=== PATIENT | female | born 1950 | race Caucasian/White ===

== ENCOUNTER 2022-01-04 19:11 | Emergency (ER) | payer MEDICARE, OTHER ==
[2022-01-04] MEDS ORDERED: HYDROcodone/Acetaminophen 5/325 mg Tablet ONE (23:24)
== END 2022-01-05 00:05 | disposition home or self-care (01) ==
LOC: ERS 19:11
DX: S82.045A Nondisplaced comminuted fracture of left patella, initial encounter for closed fracture (principal); I10 Essential (primary) hypertension; E78.5 Hyperlipidemia, unspecified; W18.30XA Fall on same level, unspecified, initial encounter

== ENCOUNTER 2022-06-03 10:51 | Outpatient (CLI) | payer MEDICARE | END 2022-06-03 10:52 | disposition home or self-care (01) | LOC: LABBT 10:51 | PROVIDERS: ATTEND Orthopaedic Surgery | DX: Z01.818 Encounter for other preprocedural examination (principal); M17.0 Bilateral primary osteoarthritis of knee | CPT/HCPCS: 71046; 80048; 81003; 85025; 85610; 86850; 86900; 86901; 87081 ==

== ENCOUNTER 2022-07-07 10:55 | Day surgery (SDC) | payer MEDICARE, OTHER ==
[2022-07-06 10:01] VITALS: BMI 30.9
[2022-07-07] MEDS ORDERED: PROPOFOL 20 ML ONE (11:25)
[2022-07-07] MEDS ORDERED: Ketamine 50 MG/ML (10ML VIAL) ONE (12:48)
[2022-07-07] MEDS ORDERED: PROPOFOL 200 MG/20 ML VIAL ONE (13:00)
[2022-07-07] MEDS ORDERED: Lidocaine 1% PF 5 ML VIAL ONE (13:00)
== END 2022-07-07 14:50 | disposition home or self-care (01) ==
LOC: SDC 10:55
PROVIDERS: ATTEND Internal Medicine Cardiovascular Disease
PROC: B24BZZ4 Ultrasonography of Heart with Aorta, Transesophageal (ICD-10-PCS; principal; 2022-07-07)
DX: I35.0 Nonrheumatic aortic (valve) stenosis (principal); I25.10 Atherosclerotic heart disease of native coronary artery without angina pectoris; I10 Essential (primary) hypertension; E78.5 Hyperlipidemia, unspecified; E11.9 Type 2 diabetes mellitus without complications; Z86.16 Personal history of COVID-19; Z79.890 Hormone replacement therapy; Z79.4 Long term (current) use of insulin; Z79.899 Other long term (current) drug therapy; Z96.41 Presence of insulin pump (external) (internal)
CPT/HCPCS: 93312; J2704

== ENCOUNTER 2022-12-27 12:54 | Outpatient (CLI) | payer MEDICARE, OTHER ==
[2022-12-27 14:37] LABS: #Basophils 0.1 10x3/uL (0.0-0.2); #Eosinphils 0.2 10x3/uL (0.0-0.5); #Monocytes 0.5 10x3/uL (0.0-1.1); #Neutrophils 5.1 10x3/uL (1.5-8.4); %Basophils 1.4 % (0.0-2.0); %Eosinophils 2.4 % (0.0-6.0); %Monocytes 6.9 % (0.0-10.0); Hematocrit 34.1 % (34.9-44.5); Mean Corpuscular HGB CONC 32.3 g/dL (32.0-36.0); Mean Corpuscular Hemoglobin 30.6 pg (27.0-33.0); Mean Platelet Volume 9.8 fl (7.4-10.4); Platelet Count 192 10x3/uL (150-450); RBC Distribution Width 13.2 % (11.5-14.5); Red Blood Cell (RBC) Count 3.59 10x6/uL (3.90-5.03); White Blood Cell (WBC) Count 6.6 10x3/uL (3.5-10.5)
[2022-12-27 15:00] LABS: Prothrombin Time 10.5 sec (9.5-12.1)
[2022-12-27 15:07] LABS: Anion Gap 9 mmol/L (10-20); BUN (Urea Nitrogen) 21 mg/dL (9.8-20.1); Calc. Creatinine Clearance 0 mL/min (70-130); Calcium 8.3 mg/dL (7.8-10.44); Carbon Dioxide 27 mmol/L (23-31); Chloride 100 mmol/L (98-107); Estimated GFR 74; Glucose 315 mg/dL (83-110); Potassium 4.3 mmol/L (3.5-5.1); Sodium 132 mmol/L (136-145)
[2022-12-27 15:32] LABS: Bilirubin Neg (Negative); Blood, Urine 25 (Negative); Clarity Cloudy (Clear); Glucose, Urine (Dipstick) >=1000 mg/dL (Negative); Ketone, Urine Negative (Negative); Leukocyte 500 (Negative); Nitrite Negative (Negative); Protein, Urine (Dipstick) Negative (Neg-Trace)
== END 2022-12-27 12:55 | disposition home or self-care (01) ==
LOC: LABBT 12:54
PROVIDERS: ATTEND Orthopaedic Surgery
DX: Z01.818 Encounter for other preprocedural examination (principal); M17.0 Bilateral primary osteoarthritis of knee
CPT/HCPCS: 71046; 80048; 81003; 85025; 85610; 86850; 86900; 86901; 87081; 93005; 93010

== ENCOUNTER 2022-12-29 06:53 | Inpatient (IN) | payer MEDICARE, OTHER ==
[2022-12-27 13:53] VITALS: BMI 30.9
[2022-12-29] MEDS ORDERED: Vancomycin 1 GM/200 ML (FROZEN) BAG ONE (07:33)
[2022-12-29] MEDS ORDERED: Tranexamic Acid 1,000 MG/10 ML VIAL ONE ×2 (07:33→11:39)
[2022-12-29] MEDS ORDERED: Sodium Chloride 0.9% 100 ML ONE ×2 (07:33→09:33)
[2022-12-29] MEDS ORDERED: Bupivacaine PF 0.5% 30 ML VIAL ONE ×2 (08:23→09:20)
[2022-12-29] MEDS ORDERED: fentaNYL 50 mcg/mL 1 mL Vial ONE ×3 (08:23→16:24)
[2022-12-29] MEDS ORDERED: Midazolam HCl 2 mg/2 ml Vial ONE (08:23)
[2022-12-29] MEDS ORDERED: Ropivacaine 0.2% 550 ML 550 ML NERVE BLCK SCH (09:15)
[2022-12-29] MEDS ORDERED: traMADol HCl 50 MG TAB PO PRN ×2 (09:15)
[2022-12-29] MEDS ORDERED: Zolpidem Tartrate 5 MG TAB PO PRN ×2 (09:15→10:07)
[2022-12-29] MEDS ORDERED: Promethazine HCl 25 MG/ML VIAL IM PRN ×3 (09:15→11:41)
[2022-12-29] MEDS ORDERED: HYDROcodone/Acetaminophen 10/325 mg Tablet PO PRN (09:15)
[2022-12-29] MEDS ORDERED: Ondansetron PF 4 MG/2 ML Vial IVP PRN ×2 (09:15→10:07)
[2022-12-29] MEDS ORDERED: fentaNYL 50 mcg/mL 1 mL Vial SLOW IVP PRN (09:19)
[2022-12-29] MEDS ORDERED: methylPREDNISolone Acetate 40 mg/ml Vial ONE (09:20)
[2022-12-29] MEDS ORDERED: Lidocaine 1% (PF) 30 ML VIAL ONE (09:20)
[2022-12-29] MEDS ORDERED: fentaNYL PF 100 MCG/2 ML SYRINGE ONE (09:25)
[2022-12-29] MEDS ORDERED: CEFAZOLIN 2 GM VIAL ONE (09:33)
[2022-12-29] MEDS ORDERED: Bupivacaine HCl 0.5%/Epinephrine 1:200,000/PF 30 ml Vial ONE (09:46)
[2022-12-29] MEDS ORDERED: Lidocaine 1% PF 5 ML VIAL ONE (09:46)
[2022-12-29] MEDS ORDERED: Metoprolol Tartrate 5 MG/5 ML VIAL ONE (09:46)
[2022-12-29] MEDS ORDERED: Ondansetron PF 4 MG/2 ML Vial ONE ×3 (09:46→16:33)
[2022-12-29] MEDS ORDERED: PROPOFOL 200 MG/20 ML VIAL ONE (09:46)
[2022-12-29] MEDS ORDERED: Acetaminophen 325 MG TAB PO PRN (10:07)
[2022-12-29] MEDS ORDERED: diphenhydrAMINE 25 MG CAP PO PRN (10:07)
[2022-12-29] MEDS ORDERED: Vancomycin HCl 1.5 GM in Sodium Chloride 0.9% 250 ML 300 ML IVPB SCH (10:15)
[2022-12-29] MEDS ORDERED: Tranexamic Acid 1,000 MG in Sodium Chloride 0.9% 100 ML IVPB SCH (10:15)
[2022-12-29] MEDS ORDERED: HYDROmorphone 2 MG/ML VIAL SLOW IVP PRN (11:41)
[2022-12-29] MEDS ORDERED: PACU-Morphine 4MG/ML VIAL SLOW IVP PRN (11:41)
[2022-12-29] MEDS ORDERED: Ondansetron HCl/PF 4 MG/2 ML Vial IVP PRN (11:41)
[2022-12-29] MEDS ORDERED: Fentanyl 250 MCG/5 ML VIAL ONE (11:54)
[2022-12-29] MEDS: Ketorolac Tromethamine 30 MG/ML VIAL IVP SCH ×3 (16:33→23:21)
[2022-12-29] MEDS: Sodium Chloride 0.9% 1,000 ML IV SCH ×2 (16:33→23:23)
[2022-12-29] MEDS: CEFAZOLIN 2 GM in Sodium Chloride 0.9% 100 ML IVPB SCH (17:14)
[2022-12-29] MEDS ORDERED: Dextrose 5% in Water 1,000 ML IV PRN (18:26)
[2022-12-29] MEDS ORDERED: Glucagon 1 MG/ML KIT IM PRN (18:26)
[2022-12-29] MEDS ORDERED: HumaLOG 300 UNITS/3 ML VIAL SC PRN ×2 (18:26)
[2022-12-29] MEDS ORDERED: Dextrose 50% Abboject 50 ML SYRINGE SLOW IVP PRN (18:26)
[2022-12-29] MEDS: Ezetimibe 10 MG TAB PO SCH (20:03)
[2022-12-29] MEDS: Rosuvastatin 20 MG TAB PO SCH (20:03)
[2022-12-29] MEDS: Melatonin 3 MG TAB PO SCH (20:03)
[2022-12-29] MEDS: Aspirin 81 mg Enteric Coated Tablet PO SCH (20:03)
[2022-12-29] MEDS ORDERED: Vancomycin 1.5 GRAM/300 ML BAG 1.5 GM in Premix Bag 1 BAG IVPB SCH (21:00)
[2022-12-30] MEDS: CEFAZOLIN 2 GM in Sodium Chloride 0.9% 100 ML IVPB SCH (02:03)
[2022-12-30] MEDS: Levothyroxine Sodium 112 MCG TAB PO SCH (05:30)
[2022-12-30] MEDS: Ketorolac Tromethamine 30 MG/ML VIAL IVP SCH ×3 (05:30→18:14)
[2022-12-30 05:42] LABS: Hematocrit 28.3 % (36.0-47.0); Hemoglobin 9.1 g/dL (12.0-16.0); Mean Corpuscular HGB CONC 32.2 g/dL (32.0-36.0); Mean Corpuscular Hemoglobin 31.3 pg (27.0-31.0); Mean Corpuscular Volume 97.3 fl (78.0-98.0); Mean Platelet Volume 10.1 fL (7.4-10.4); Platelet Count 153 10x3/uL (130-400); RBC Distribution Width 13.5 % (11.5-14.5); Red Blood Cell (RBC) Count 2.91 mill/uL (4.20-5.40); White Blood Cell (WBC) Count 7.4 10x3/uL (4.8-10.8)
[2022-12-30] MEDS: Sodium Chloride 0.9% 1,000 ML IV SCH ×2 (07:51→16:26)
[2022-12-30] MEDS: Aspirin 81 mg Enteric Coated Tablet PO SCH ×2 (08:43→20:27)
[2022-12-30] MEDS: Multivitamin W/ Minerals 1 TAB PO SCH (08:43)
[2022-12-30] MEDS: Senokot S 8.6-50 MG TAB PO SCH ×2 (08:43→20:27)
[2022-12-30] MEDS: Ferrous Gluconate 324 MG TAB PO SCH ×2 (08:43→20:27)
[2022-12-30] MEDS: Losartan 25 MG TAB PO SCH (08:44)
[2022-12-30] MEDS: BuPROPion XL 150 MG ER.TAB PO SCH (08:44)
[2022-12-30] MEDS: HYDROcodone/Acetaminophen 10/325 mg Tablet PO PRN ×2 (08:49→16:28)
[2022-12-30] MEDS: Ezetimibe 10 MG TAB PO SCH (20:27)
[2022-12-30] MEDS: Melatonin 3 MG TAB PO SCH (20:27)
[2022-12-30] MEDS: Rosuvastatin 20 MG TAB PO SCH (20:27)
[2022-12-31] MEDS: Ketorolac Tromethamine 30 MG/ML VIAL IVP SCH ×2 (00:03→06:12)
[2022-12-31] MEDS: HYDROcodone/Acetaminophen 10/325 mg Tablet PO PRN ×2 (02:30→09:22)
[2022-12-31] MEDS: Sodium Chloride 0.9% 1,000 ML IV SCH (03:22)
[2022-12-31 05:42] LABS: #Basophils 0.1 thou/uL (0.0-0.2); #Eosinphils 0.1 thou/uL (0.0-0.7); #Monocytes 0.7 thou/uL (0.11-0.59); #Neutrophils 6.2 thou/uL (1.40-6.50); %Basophils 0.7 % (0.0-1.0); %Eosinophils 1.6 % (0.0-10.0); %Lymphocytes 6.3 % (21.0-51.0); %Monocytes 8.9 % (0.0-10.0); Hematocrit 28.1 % (36.0-47.0); Hemoglobin 9.2 g/dL (12.0-16.0); Mean Corpuscular HGB CONC 32.7 g/dL (32.0-36.0); Mean Corpuscular Hemoglobin 31.4 pg (27.0-31.0); Mean Corpuscular Volume 95.9 fl (78.0-98.0); Mean Platelet Volume 10.1 fL (7.4-10.4); Platelet Count 148 10x3/uL (130-400); RBC Distribution Width 13.4 % (11.5-14.5); Red Blood Cell (RBC) Count 2.93 mill/uL (4.20-5.40); White Blood Cell (WBC) Count 7.5 10x3/uL (4.8-10.8)
[2022-12-31 06:06] LABS: Anion Gap 16 mmol/L (10-20); BUN (Urea Nitrogen) 21 mg/dL (9.8-20.1); Calc. Creatinine Clearance 72 mL/min (70-130); Calcium 8.4 mg/dL (7.8-10.44); Carbon Dioxide 20 mmol/L (23-31); Chloride 99 mmol/L (98-107); Estimated GFR 70; Glucose 330 mg/dL (83-110); Potassium 5.1 mmol/L (3.5-5.1); Sodium 130 mmol/L (136-145)
[2022-12-31] MEDS: Levothyroxine Sodium 112 MCG TAB PO SCH (06:13)
[2022-12-31 08:22] VITALS: BP 122/70; TEMP 98.4
[2022-12-31] MEDS: Aspirin 81 mg Enteric Coated Tablet PO SCH (09:22)
[2022-12-31] MEDS: BuPROPion XL 150 MG ER.TAB PO SCH (09:22)
[2022-12-31] MEDS: Senokot S 8.6-50 MG TAB PO SCH (09:22)
[2022-12-31] MEDS: Losartan 25 MG TAB PO SCH (09:23)
[2022-12-31] MEDS: Multivitamin W/ Minerals 1 TAB PO SCH (09:23)
[2022-12-31] MEDS: Ferrous Gluconate 324 MG TAB PO SCH (09:23)
== END 2022-12-31 13:09 | disposition home or self-care (01) | DRG 470 ==
LOC: SDC 06:53 → SURG B 10:07
PROVIDERS: ADMIT Orthopaedic Surgery; ATTEND Orthopaedic Surgery
PROC: 0SRD0J9 Replacement of Left Knee Joint with Synthetic Substitute, Cemented, Open Approach (ICD-10-PCS; principal; 2022-12-29)
PROC: 3E0U33Z Introduction of Anti-inflammatory into Joints, Percutaneous Approach (ICD-10-PCS; 2022-12-29)
PROC: 3E0U3BZ Introduction of Anesthetic Agent into Joints, Percutaneous Approach (ICD-10-PCS; 2022-12-29)
DX: M17.0 Bilateral primary osteoarthritis of knee (principal); E87.1 Hypo-osmolality and hyponatremia; D62 Acute posthemorrhagic anemia; I10 Essential (primary) hypertension; E03.9 Hypothyroidism, unspecified; E11.9 Type 2 diabetes mellitus without complications; Z98.890 Other specified postprocedural states
CPT/HCPCS: 36415; 36416; 80048; 83036; 85027; 86850; 86900; 86901; A4306; C1776; J1030; J1885; J2001; J2250; J2405; J2704; J2795; J3010; J3370; J3370-JW; J3490; S0020

== ENCOUNTER 2023-12-30 08:50 | Outpatient (CLI) | payer MEDICARE ==
[2023-12-30 10:37] LABS: #Basophils 0.12 10x3/uL (0.0-0.2); %Basophils 2.3 % (0.0-1.0); %Eosinophils 4.7 % (0.0-10.0); %Lymphocytes 19.3 % (21.0-51.0); %Monocytes 11.2 % (0.0-10.0); %Neutrophils 62.1 % (42.0-75.0); Hematocrit 35.1 % (36.0-47.0); Hemoglobin 11.5 g/dL (12.0-16.0); Mean Corpuscular HGB CONC 32.8 g/dL (32.0-36.0); Mean Corpuscular Hemoglobin 30.6 pg (27.0-31.0); Mean Corpuscular Volume 93.4 fL (78.0-98.0); Mean Platelet Volume 9.7 fL (7.4-10.4); Platelet Count 210 10x3/uL (130-400); RBC Distribution Width 13.3 % (11.5-14.5); Red Blood Cell (RBC) Count 3.76 mill/uL (4.20-5.40)
[2023-12-30 10:44] LABS: Bilirubin Negative (Negative); Blood, Urine Negative (Negative); Clarity Clear (Clear); Glucose, Urine (Dipstick) Normal (Negative); Ketone, Urine Trace mg/dL (Negative); Leukocyte 500 Leu/uL (Negative); Nitrite Negative (Negative); Protein, Urine (Dipstick) Negative (Neg-Trace); Specific Gravity, Urine 1.013 (1.002-1.036); Urobilinogen Normal mg/dL (Less than 2); pH, Urine 5.5 (5.0-9.0)
[2023-12-30 10:53] LABS: Anion Gap 11 mmol/L (10-20); BUN (Urea Nitrogen) 18 mg/dL (9.8-20.1); Calc. Creatinine Clearance 0 mL/min (70-130); Calcium 8.6 mg/dL (7.8-10.44); Carbon Dioxide 25 mmol/L (23-31); Chloride 101 mmol/L (98-107); Estimated GFR 71; Glucose 218 mg/dL (83-110); Potassium 4.4 mmol/L (3.5-5.1); Sodium 133 mmol/L (136-145)
== END 2023-12-30 08:51 | disposition home or self-care (01) ==
LOC: LABBT 08:50
PROVIDERS: ATTEND Orthopaedic Surgery
DX: Z01.818 Encounter for other preprocedural examination (principal); M17.11 Unilateral primary osteoarthritis, right knee
CPT/HCPCS: 71046; 80048; 81003; 85025; 85610; 87081; 93005; 93010

== ENCOUNTER 2024-01-04 06:05 | Inpatient (IN) | payer MEDICARE ==
[2023-12-30 09:21] VITALS: BMI 29.9
[2024-01-04] MEDS ORDERED: Tranexamic Acid 1,000 MG/10 ML VIAL ONE ×2 (06:11→09:31)
[2024-01-04] MEDS ORDERED: CEFAZOLIN 2 GM VIAL ONE (06:12)
[2024-01-04] MEDS ORDERED: Sodium Chloride 0.9% 100 ML ONE (06:12)
[2024-01-04] MEDS ORDERED: Vancomycin 1 GM/200 ML (FROZEN) BAG ONE (06:12)
[2024-01-04] MEDS ORDERED: Bupivacaine PF 0.5% 30 ML VIAL ONE ×2 (06:26→06:28)
[2024-01-04] MEDS ORDERED: Midazolam HCl 2 mg/2 ml Vial ONE (06:47)
[2024-01-04] MEDS ORDERED: Fentanyl 250 MCG/5 ML VIAL ONE (06:48)
[2024-01-04] MEDS ORDERED: Bupivacaine HCl 0.5%/Epinephrine 1:200,000/PF 30 ml Vial ONE (07:15)
[2024-01-04] MEDS ORDERED: fentaNYL 50 mcg/mL 1 mL Vial SLOW IVP PRN (07:16)
[2024-01-04] MEDS ORDERED: Ropivacaine 0.2% 550 ML 550 ML NERVE BLCK SCH (07:30)
[2024-01-04] MEDS ORDERED: Zolpidem Tartrate 5 MG TAB PO PRN ×2 (07:30→09:47)
[2024-01-04] MEDS ORDERED: Ondansetron PF 4 MG/2 ML Vial IVP PRN ×2 (07:30→09:47)
[2024-01-04] MEDS ORDERED: HYDROcodone/Acetaminophen 10/325 mg Tablet PO PRN (07:30)
[2024-01-04] MEDS ORDERED: Promethazine HCl 25 MG/ML VIAL IM PRN ×3 (07:30→10:15)
[2024-01-04] MEDS ORDERED: PROPOFOL 20 ML ONE (07:33)
[2024-01-04] MEDS ORDERED: PHENYLEPHRINE-NS 100 MCG/ML 10 ML SYRINGE ONE ×2 (08:04→08:19)
[2024-01-04] MEDS ORDERED: Esmolol 100 MG/10 ML VIAL ONE (08:16)
[2024-01-04] MEDS ORDERED: Ondansetron PF 4 MG/2 ML Vial ONE (09:14)
[2024-01-04] MEDS ORDERED: diphenhydrAMINE 25 MG CAP PO PRN (09:47)
[2024-01-04] MEDS ORDERED: Acetaminophen 325 MG TAB PO PRN (09:47)
[2024-01-04] MEDS ORDERED: HYDROmorphone 0.5 MG/0.5 ML SYRINGE ONE (09:51)
[2024-01-04] MEDS ORDERED: fentaNYL PF 100 MCG/2 ML SYRINGE ONE (09:51)
[2024-01-04] MEDS ORDERED: Tranexamic Acid 1,000 MG in Sodium Chloride 0.9% 100 ML IVPB SCH (10:00)
[2024-01-04] MEDS ORDERED: HYDROmorphone 2 MG/ML VIAL SLOW IVP PRN (10:15)
[2024-01-04] MEDS ORDERED: Ondansetron HCl/PF 4 MG/2 ML Vial IVP PRN (10:15)
[2024-01-04] MEDS ORDERED: Pantoprazole DR 40 MG TAB PO PRN (10:16)
[2024-01-04] MEDS: Sodium Chloride 0.9% 1,000 ML IV SCH (11:51)
[2024-01-04] MEDS ORDERED: Dexamethasone 20 MG/5 ML VIAL ONE (12:11)
[2024-01-04] MEDS ORDERED: Lidocaine 1% PF 5 ML VIAL ONE (12:11)
[2024-01-04] MEDS ORDERED: Dextrose 50% Abboject 50 ML SYRINGE SLOW IVP PRN (13:37)
[2024-01-04] MEDS ORDERED: Glucagon 1 MG/ML KIT IM PRN (13:37)
[2024-01-04] MEDS ORDERED: Dextrose 5% in Water 1,000 ML IV PRN (13:37)
[2024-01-04] MEDS: Ketorolac Tromethamine 30 MG (1 mL) VIAL IVP SCH (15:14)
[2024-01-04] MEDS: CEFAZOLIN 2 GM in Sodium Chloride 0.9% 100 ML IVPB SCH (15:17)
[2024-01-04] MEDS: Insulin Lispro 100 UNIT/ML 10 ML VIAL SC PRN (15:19)
[2024-01-04] MEDS: Vancomycin (BATCH) 1.5 GM in Premix 1 BAG IVPB SCH (17:47)
[2024-01-04] MEDS: Ezetimibe 10 MG TAB PO SCH (21:12)
[2024-01-04] MEDS: Rosuvastatin 20 MG TAB PO SCH (21:12)
[2024-01-04] MEDS: Senokot S 8.6-50 MG TAB PO SCH (21:13)
[2024-01-04] MEDS: Melatonin 3 MG TAB PO SCH (21:14)
[2024-01-04] MEDS: Nitrofurantoin Monohyd/M-Cryst 100 MG CAP PO SCH (21:14)
[2024-01-04] MEDS: Aspirin 81 mg Enteric Coated Tablet PO SCH (21:15)
[2024-01-04] MEDS: Ferrous Gluconate 324 MG TAB PO SCH (21:15)
[2024-01-05 05:05] LABS: #Basophils 0.05 10x3/uL (0.0-0.2); #Eosinphils Less than 0.03 10x3/uL (0.0-0.7); %Basophils 0.6 % (0.0-1.0); %Eosinophils 0.1 % (0.0-10.0); %Lymphocytes 11.1 % (21.0-51.0); %Monocytes 10.9 % (0.0-10.0); %Neutrophils 76.9 % (42.0-75.0); Hematocrit 27.7 % (36.0-47.0); Hemoglobin 9.1 g/dL (12.0-16.0); Mean Corpuscular HGB CONC 32.9 g/dL (32.0-36.0); Mean Corpuscular Hemoglobin 30.8 pg (27.0-31.0); Mean Corpuscular Volume 93.9 fL (78.0-98.0); Mean Platelet Volume 9.9 fL (7.4-10.4); Platelet Count 178 10x3/uL (130-400); RBC Distribution Width 13.4 % (11.5-14.5); Red Blood Cell (RBC) Count 2.95 mill/uL (4.20-5.40)
[2024-01-05 05:30] LABS: Anion Gap 12 mmol/L (10-20); BUN (Urea Nitrogen) 26 mg/dL (9.8-20.1); Calc. Creatinine Clearance 79 mL/min (70-130); Calcium 8.2 mg/dL (7.8-10.44); Carbon Dioxide 22 mmol/L (23-31); Chloride 104 mmol/L (98-107); Estimated GFR 80; Glucose 188 mg/dL (83-110); Potassium 4.7 mmol/L (3.5-5.1); Sodium 133 mmol/L (136-145)
[2024-01-05] MEDS: Levothyroxine Sodium 112 MCG TAB PO SCH (05:44)
[2024-01-05] MEDS: BuPROPion XL 150 MG ER.TAB PO SCH (09:57)
[2024-01-05] MEDS: Multivitamin W/ Minerals 1 TAB PO SCH (09:57)
[2024-01-05] MEDS: Amlodipine 5 MG TAB PO SCH (09:57)
[2024-01-05] MEDS: Losartan 25 MG TAB PO SCH (09:58)
[2024-01-05] MEDS: HYDROcodone/Acetaminophen 10/325 mg Tablet PO PRN (13:34)
[2024-01-06 06:14] LABS: Hematocrit 26.1 % (36.0-47.0); Hemoglobin 8.6 g/dL (12.0-16.0); Mean Corpuscular Hemoglobin 30.5 pg (27.0-31.0); Mean Corpuscular Volume 92.6 fL (78.0-98.0); Mean Platelet Volume 10.2 fL (7.4-10.4); Platelet Count 150 10x3/uL (130-400); RBC Distribution Width 13.6 % (11.5-14.5); Red Blood Cell (RBC) Count 2.82 mill/uL (4.20-5.40)
[2024-01-06 12:25] VITALS: BP 145/69; TEMP 98.6
== END 2024-01-06 12:50 | disposition home or self-care (01) | DRG 470 ==
LOC: SDC 06:05 → SURG B 09:47 → SDC 01-05 12:10
PROVIDERS: ADMIT Orthopaedic Surgery; ATTEND Orthopaedic Surgery
PROC: 0SRC0J9 Replacement of Right Knee Joint with Synthetic Substitute, Cemented, Open Approach (ICD-10-PCS; principal; 2024-01-04)
PROC: 8E0Y0CZ Robotic Assisted Procedure of Lower Extremity, Open Approach (ICD-10-PCS; 2024-01-04)
DX: M17.11 Unilateral primary osteoarthritis, right knee (principal); I10 Essential (primary) hypertension; E78.5 Hyperlipidemia, unspecified; E11.65 Type 2 diabetes mellitus with hyperglycemia; E03.9 Hypothyroidism, unspecified; F41.9 Anxiety disorder, unspecified; K21.9 Gastro-esophageal reflux disease without esophagitis; Z96.652 Presence of left artificial knee joint; Z98.890 Other specified postprocedural states
CPT/HCPCS: 36415; 36416; 80048; 85027; A4306; C1713; C1776; C1889; J0665; J1100; J1170; J1815; J1885; J2250; J2405; J2704; J2795; J3010; J3370; J3370-JW